=== PATIENT | male | born 1950 | race Caucasian/White ===

== ENCOUNTER 2020-12-04 07:38 | Day surgery (SDC) | payer MEDICARE, OTHER ==
[2020-12-26] MEDS ORDERED: TUMS500 MG (13:47)
[2020-12-26] MEDS ORDERED: NITR.4SL SL (13:48)
== END 2020-12-04 22:52 | disposition home or self-care (01) ==
LOC: CT 07:38
DX: R07.9 Chest pain, unspecified (principal); E78.2 Mixed hyperlipidemia
CPT/HCPCS: 75571

== ENCOUNTER 2020-12-27 07:39 | Day surgery (SDC) | payer MEDICARE ==
[~2020-12-27] VITALS: Ht 175.3 cm; Wt 66.0 kg
[~2020-12-27 07:39] MED LIST: NITR.4SL SL; TUMS500 MG
[2020-12-27] MEDS ORDERED: ATOR40TA PO (09:33)
[2020-12-27] MEDS ORDERED: Aspir 8181 MG PO (09:33)
--- NOTE | 2020-12-27 10:27 | NUR ---
RIGHT WRIST TR BAND DEFLATION STARTED. ARM BOARD REMAINS ON FOR SUPPORT. PT EATING BREAKFAST, TOLERATES WITH NO DIFFICULTIES. DENIES PAIN. RIGHT RADIAL SITE APPEARS TO BE SOFT NON TENDER WITH NO ACTIVE BLEEDING, OOZING, OR PAIN NOTED.
--- NOTE | 2020-12-27 10:36 | NUR ---
TR BAND FULLY DEFLATED. PT AMBULATES WITH STEADY GAIT. UNMEASURED VOID. GETS DRESSED INTO PANTS. UPDATED ON ESTIMATED DISCHARGE TIME. RIGHT WRIST REMAINS TO APPEAR TO HAVE NO BLEEDING OR OOZING AFTER GETTING SELF INTO PANTS. CALL LIGHT IN REACH. ARETHA. NATHANAEL.
--- NOTE | 2020-12-27 11:22 | NUR ---
TR BAND REMOVED, RED CLOTH DOT DRESSING APPLIED. SOFT NON TENDER WITH NO BLEEDING. IV REMOVED WITH CATHETER INTACT, PRESSURE DRESSING APPLIED. PT GETS FULLY DRESSED WITH NO NEEDED ASSISTANCE.
--- NOTE | 2020-12-27 11:32 | NUR ---
DISCHARGE INSTRUCTIONS REVIEWED, VERBAL UNDERSTANDING RECIEVED BY PT, PAPERWORK IN FOLDER. ARRIVES TO DRIVE PT HOME, AMBULATES TO PRIVATE VEHICLE WITH STEADY GAIT, NO PAIN. RIGHT WRIST WITH RED CLOTH DOT INTACT. ENCOURAGED TO FOLLOW UP SCHEDULED WITH PROVIDER.
== END 2020-12-27 13:20 | disposition home or self-care (01) ==
LOC: MHTC 07:39
DX: I25.10 Atherosclerotic heart disease of native coronary artery without angina pectoris (principal); E78.5 Hyperlipidemia, unspecified
CPT/HCPCS: 76937; 93458; 99152; C1894; J1644; J2250; J3010; J7030